=== PATIENT | male | born 1970 | race Caucasian/White ===

== ENCOUNTER 2016-05-03 11:07 | Inpatient (IN) | payer MEDICAID, OTHER ==
[~2016-05-03] VITALS: Ht 154.9 cm; Wt 86.5 kg
[~2016-05-03 11:07] MED LIST: LISI-661 PO; METF500T4 PO; PANT40TA PO; QUET200T PO; SERT100T12 PO; TRAZ-147 PO
[2016-05-03 11:21] LABS: GLUCOSE,POINT OF CARE 146 MG/DL (70-110)
[2016-05-03 11:41] LABS: BASOPHILS % (AUTO) 0.3 % (0.0-2.0); EOSINOPHILS % (AUTO) 0.5 % (1.0-6.0); HEMATOCRIT 47.1 % (41-53); HEMOGLOBIN 16.2 g/dL (13.5-17.5); LYMPHOCYTES # (AUTO) 2.4 K/uL (1.0-4.8); LYMPHOCYTES % (AUTO) 27.3 % (22.0-44.0); MEAN CORPUSCULAR HEMOGLOBIN 31.7 pg (26.0-34.0); MEAN CORPUSCULAR HGB CONC 34.4 G/dL (31.0-37.0); MEAN CORPUSCULAR VOLUME 92 fL (80-100); MONOCYTES # (AUTO) 0.6 K/uL (0.1-1.0); MONOCYTES % (AUTO) 6.5 % (2.0-9.0); NEUTROPHILS # (AUTO) 5.8 K/uL (1.8-7.7); NEUTROPHILS % (AUTO) 65.4 % (40.0-70.0); PLATELET COUNT (AUTO) 219 K/uL (150-450); RED CELL DISTRIBUTION WIDTH 14.8 % (11.5-14.5); WHITE BLOOD COUNT (AUTO) 8.8 K/uL (4.5-11.0)
[2016-05-03 11:50] LABS: ANION GAP 8 mmol/L (8-16); CALCIUM, TOTAL 8.6 mg/dL (8.8-10.5); CARBON DIOXIDE 29 mmol/L (22-29); CHLORIDE 98 mmol/L (98-107); CREATININE 0.85 mg/dL (0.60-1.30); GLOMERULAR FILTR. RATE CALC > 60 mL/min (>60); SODIUM SERUM 135 mmol/L (136-145); UREA NITROGEN, BLOOD 6 mg/dL (7-18)
[2016-05-03 12:20] LABS: ALANINE AMINOTRANSFERASE 41 U/L (12-78); ALBUMIN 3.9 g/dL (3.4-5.0); ASPARTATE AMINOTRANSFERASE 42 U/L (15-37); BILIRUBIN,TOTAL 0.6 mg/dL (0.1-1.0); TOTAL PROTEIN, SERUM 8.5 g/dL (6.4-8.2)
[2016-05-03] MEDS ORDERED: LORazepam 2 MG TABLET PO ONE (13:30)
[2016-05-03] MEDS ORDERED: DiphenhydrAMINE HCL 50 MG CAPSULE PO ONE (13:30)
[2016-05-03] MEDS ORDERED: HALOPERIDOL 5 MG TABLET PO ONE (13:30)
[2016-05-03] MEDS ORDERED: HALOPERIDOL 5 MG TABLET PO PRN (13:45)
[2016-05-03] MEDS ORDERED: ACETAMINOPHEN 325 MG TABLET PO PRN (13:45)
[2016-05-03] MEDS ORDERED: ZOLPIDEM TARTRATE 10 MG TABLET PO PRN (13:45)
[2016-05-03] MEDS ORDERED: MAG HYDROX/AL HYDROX/SIMETH ES 30 ML SUSPENSION UDCUP PO PRN (13:45)
[2016-05-03] MEDS ORDERED: MAGNESIUM HYDROXIDE SUSPENSION 30 ML UDCUP PO PRN (13:45)
[2016-05-04] MEDS: LORazepam 2 MG TABLET PO PRN ×2 (08:52→20:53)
[2016-05-04 10:50] VITALS: BP 148/91
[2016-05-04] MEDS ORDERED: DEXTROSE 50%-WATER 25 GM/50 ML SYRINGE IVP PRN (11:15)
[2016-05-04] MEDS ORDERED: INFLUENZA VIRUS VACCINE QVS 2016-17 (3YR+)/PF 60 MCG/0.5 ML SYRINGE IM ONE (11:45)
[2016-05-04] MEDS ORDERED: PNEUMOCOCCAL VACCINE POLYVALENT 0.5 ML VIAL [PPSV23] IM ONE (11:45)
[2016-05-04] MEDS: LISINOPRIL 10 MG TABLET PO SCH ×2 (12:16→20:51)
[2016-05-04 17:15] LABS: GLUCOSE,POINT OF CARE 121 MG/DL (70-110)
[2016-05-04 18:34] VITALS: BP 146/85
[2016-05-04 20:45] VITALS: BP 129/78
[2016-05-05 05:31] LABS: GLUCOSE,POINT OF CARE 159 MG/DL (70-110)
[2016-05-05 05:37] VITALS: BP 127/92
[2016-05-05] MEDS: MetFORMIN HCL 500 MG TABLET PO SCH (06:39)
[2016-05-05] MEDS: INSULIN ASPART 100 UNITS/ML SQ PRN (06:43)
[2016-05-05 07:39] LABS: HEMOGLOBIN A1C 6.2 % (4.5-6.2)
[2016-05-05 07:44] LABS: CHOL/HDL RATIO 2.3 (4.2-7.3)
[2016-05-05 08:30] VITALS: BP 161/109
[2016-05-05] MEDS: PANTOPRAZOLE SODIUM 40 MG DR TABLET PO SCH (09:03)
[2016-05-05] MEDS: LISINOPRIL 10 MG TABLET PO SCH ×2 (09:03→16:30)
[2016-05-05 17:01] LABS: GLUCOSE,POINT OF CARE 123 MG/DL (70-110)
[2016-05-05 17:11] VITALS: BP 145/99
[2016-05-05] MEDS: LORazepam 2 MG TABLET PO PRN (20:09)
[2016-05-06 05:23] LABS: GLUCOSE,POINT OF CARE 149 MG/DL (70-110)
[2016-05-06 06:19] VITALS: BP 123/88
[2016-05-06] MEDS: MetFORMIN HCL 500 MG TABLET PO SCH (06:43)
[2016-05-06] MEDS: INSULIN ASPART 100 UNITS/ML SQ PRN (06:44)
[2016-05-06 08:30] VITALS: BP 128/77
[2016-05-06] MEDS: PANTOPRAZOLE SODIUM 40 MG DR TABLET PO SCH (08:52)
[2016-05-06] MEDS: LISINOPRIL 10 MG TABLET PO SCH (08:52)
== END 2016-05-06 14:15 | disposition home or self-care (01) | DRG 750 ==
LOC: EMS 11:09 → AHU 05-04 10:12 → 3EI 05-04 18:29 → AHU 05-04 18:57 → 3EI 05-04 21:34
PROVIDERS: ADMIT Psychiatry & Neurology Psychiatry; ATTEND Psychiatry & Neurology Psychiatry
DX: F20.0 Paranoid schizophrenia (principal); R45.851 Suicidal ideations; R45.850 Homicidal ideations; I10 Essential (primary) hypertension; F10.129 Alcohol abuse with intoxication, unspecified; F31.9 Bipolar disorder, unspecified; E11.9 Type 2 diabetes mellitus without complications; K21.9 Gastro-esophageal reflux disease without esophagitis; Y90.8 Blood alcohol level of 240 mg/100 ml or more; L40.9 Psoriasis, unspecified; Z28.21 Immunization not carried out because of patient refusal; Z79.899 Other long term (current) drug therapy; Z98.890 Other specified postprocedural states; Z82.49 Family history of ischemic heart disease and other diseases of the circulatory system
CPT/HCPCS: 70450; 82962; 83036; 87081; 99285; G0480